=== PATIENT | female | born 1965 | race Two or more races ===

== ENCOUNTER 2022-04-28 15:19 | Emergency (ER) | payer OTHER ==
[~2022-04-28] VITALS: Ht 175.3 cm; Wt 149.7 kg
[2022-04-28] MEDS ORDERED: NORFLEC (15:52)
[2022-04-28] MEDS ORDERED: CATAFLAN (15:52)
== END 2022-04-28 19:19 | disposition home or self-care (01) ==
LOC: ER 15:19
DX: U07.1 COVID-19 (principal); R50.9 Fever, unspecified

== ENCOUNTER 2025-02-10 09:08 | Outpatient (CLI) | payer OTHER ==
[~2025-02-10 09:08] MED LIST: CATAFLAN; NORFLEC
== END 2025-02-10 09:21 | disposition home or self-care (01) ==
LOC: SONOGRAMA 09:08
DX: M17.0 Bilateral primary osteoarthritis of knee (principal); M10.00 Idiopathic gout, unspecified site; M72.2 Plantar fascial fibromatosis; S93.401A Sprain of unspecified ligament of right ankle, initial encounter